=== PATIENT | male | born 1975 | race Two or more races ===

== ENCOUNTER 2019-05-29 10:45 | Emergency (ER) | payer OTHER ==
[~2019-05-29] VITALS: Ht 185.4 cm; Wt 95.3 kg
== END 2019-05-29 12:53 | disposition home or self-care (01) ==
LOC: ER 10:45
DX: R06.02 Shortness of breath (principal); T44.4X5A Adverse effect of predominantly alpha-adrenoreceptor agonists, initial encounter; Y92.89 Other specified places as the place of occurrence of the external cause